=== PATIENT | male | born 1965 | race Caucasian/White ===

== ENCOUNTER → 2022-02-26 10:11 | Outpatient (BNVA) | payer OTHER, SELFPAY | PROVIDERS: Visit Provider Physician Assistant Medical | DX: S20.229D Contusion of unspecified back wall of thorax, subsequent encounter (principal); S29.012D Strain of muscle and tendon of back wall of thorax, subsequent encounter; W00.0XXD Fall on same level due to ice and snow, subsequent encounter | CPT/HCPCS: 71101; 99203 ==